=== PATIENT | female | born 1960 | race Caucasian/White ===

== ENCOUNTER 2017-11-24 15:52 | Outpatient (CLI) | payer OTHER | END 2017-11-24 15:53 | disposition home or self-care (01) | LOC: BICMAMMO 15:52 | PROVIDERS: ATTEND Specialist | DX: Z12.31 Encounter for screening mammogram for malignant neoplasm of breast (principal); Z80.3 Family history of malignant neoplasm of breast | CPT/HCPCS: 77063; 77067 ==

== ENCOUNTER 2017-12-04 02:59 | Observation (INO) | payer OTHER, SELFPAY ==
[2017-12-04 03:47] LABS: Bilirubin Negative (Negative); Blood, Urine Negative (Negative); Clarity CLEAR (Clear); Glucose, Urine (Dipstick) Negative (Negative); Leukocyte Negative (Negative); Nitrite Negative (Negative); Protein, Urine (Dipstick) Negative (Neg-Trace); Specific Gravity, Urine 1.012 (1.002-1.036)
[2017-12-04 03:48] LABS: ALT (SGPT) 35 U/L (8-55); AST (SGOT) 36 U/L (5-34); Albumin 4.2 g/dL (3.5-5.0); Alkaline Phosphatase 78 U/L (40-150); Anion Gap 14 mmol/L (10-20); BUN (Urea Nitrogen) 9 mg/dL (9.8-20.1); Bilirubin, Total 0.6 mg/dL (0.2-1.2); Calc. Creatinine Clearance 0 mL/min (70-130); Calcium 9.5 mg/dL (7.8-10.44); Carbon Dioxide 20 mmol/L (22-29); Chloride 93 mmol/L (98-107); Estimated GFR-MDRD 66; Globulin 3.4 g/dL (2.4-3.5); Glucose 123 mg/dL (70-105); Potassium 3.4 mmol/L (3.5-5.1); Protein, Total 7.6 g/dL (6.0-8.3); Sodium 124 mmol/L (136-145)
[2017-12-04 03:51] LABS: Hemoglobin 14.5 g/dL (12.0-16.0); Lymphocytes 40 % (21-51); MDiff Complete? YES; Mean Corpuscular HGB CONC 35.3 g/dL (32.0-36.0); Mean Corpuscular Hemoglobin 34.2 pg (27.0-31.0); Mean Platelet Volume 6.6 fL (7.4-10.4); Monocytes 5 % (0-10); Neutrophil 55 % (42-75); PLT Morphology Comment Appears Adequate; Platelet Count 288 thou/uL (130-400); RBC Distribution Width 11.7 % (11.5-14.5); Red Blood Cell (RBC) Count 4.23 mill/uL (4.20-5.40); White Blood Cell (WBC) Count 7.8 thou/uL (4.8-10.8)
[2017-12-04 07:44] VITALS: BMI 25.8
[2017-12-04] MEDS ORDERED: Acetaminophen 325 MG TAB PO PRN (09:08)
[2017-12-04] MEDS: Promethazine HCl 25 MG/ML VIAL SLOW IVP PRN ×2 (09:15→12:46)
[2017-12-04] MEDS: Sodium Chloride 0.9% 1,000 ML IV SCH ×2 (09:19→16:24)
--- NOTE | 2017-12-04 09:36 | RAD ---
UPRIGHT PORTABLE CHEST 1 VIEW: HISTORY: A 57-year-old female with a history of hyponatremia, smoking history, urinary frequency. FINDINGS: Monitor leads overlie the chest. There are some thoracolumbar scoliosis changes. Heart size is with in normal limits. No confluent pneumonia, overt edema, or pleural effusion. IMPRESSION: No significant acute intrathoracic disease. Thoracolumbar spine scoliosis. Atherosclerosis of the a guillermo with some ectasia. POS: [facility]
[2017-12-04 12:20] LABS: Anion Gap 13 mmol/L (10-20); BUN (Urea Nitrogen) 6 mg/dL (9.8-20.1); Calc. Creatinine Clearance 100 mL/min (70-130); Calcium 8.8 mg/dL (7.8-10.44); Carbon Dioxide 18 mmol/L (22-29); Chloride 100 mmol/L (98-107); Estimated GFR-MDRD 79; Glucose 121 mg/dL (70-105); Potassium 3.4 mmol/L (3.5-5.1); Sodium 128 mmol/L (136-145)
[2017-12-04] MEDS ORDERED: Temazepam 15 MG CAP PO PRN (15:48)
[2017-12-04] MEDS ORDERED: Promethazine HCl 25 MG/ML VIAL SLOW IVP PRN (15:49)
--- NOTE | 2017-12-04 17:26 | HP ---
DATE OF ADMISSION: 12/04/2017 CHIEF COMPLAINT: Hyponatremia. HISTORY OF PRESENT ILLNESS: The patient is a 57-year-old female who came in to see Dr. Rondon 3 days prior, was noted to have a bladder infection and placed on Bactrim. Since that time she has been experiencing extreme nausea and in the ER exhibited nausea and vomiting. Her sodium was found to be 124, so Dr. Rondon was contacted for admission. She denied any dysuria, blood in urine, fever or pain. PAST MEDICAL HISTORY: Significant for chronic back pain, insomnia, depression. She is also menopausal and has had osteoarthritis affecting her knees. PAST SURGICAL HISTORY: Has been right knee surgery. PAST PSYCHIATRIC HISTORY: Has been concerning anxiety. SOCIAL HISTORY: She is single. Drinks 2-3 glasses of wine 2-3 times a week. She uses marijuana regularly. She also uses tobacco and smokes one half pack per day. ALLERGIES: PENICILLINS, ZOFRAN and most recently SULFA DRUGS like BACTRIM. CURRENT MEDICATIONS: Include Bactrim DS b.i.d., which has been discontinued; and citalopram 40 mg once a day. REVIEW OF SYSTEMS: Constitutional: Negative for fever, chills, malaise, fatigue. HEENT: Denies any blurred vision, drainage from ears, nose or throat. No pain . Chest: Denies shortness of breath or coughing. Cardiovascular: Denies palpitations or chest pain. Gastrointestinal: Has nausea. Denies diarrhea. Has vomited several times. Genitourinary: Denies dysuria at this time. She still has frequency. No blood in urine or stool. Musculoskeletal: Denies swelling or edema in the extremities. Painful range of motion present. Skin: Without acute rashes or lesions. Neurologic: She complains of insomnia which has been chronic, but has no other trouble with mentation. No paresthesias or hypesthesias. PHYSICAL EXAMINATION: At the time of admission; VITAL SIGNS: Blood pressure 149/91, pulse 79, respirations 18, temperature 99. Pain scale at 7, which is chronically in her back. O2 sat 97% on room air. GENERAL: This is a well-developed, well-nourished female, alert, oriented, and cooperative. HEENT: Normocephalic and atraumatic. Pupils equal, round, and reactive to light. Extraocular muscles are intact. TMs, nares, pharynx are clear. NECK: Supple, trachea midline, no lymphadenopathy. CHEST: With generally diminished breath sounds throughout, no active wheezing or rales. HEART: Regular rate and rhythm, no murmur. BREAST: Deferred. ABDOMEN: Soft, nontender, without organomegaly. GENITOURINARY: Deferred. EXTREMITIES: Without clubbing, cyanosis, or edema. SKIN: No acute rashes or lesions. NEUROLOGIC: Cranial nerves are intact. Gait and cerebellar function untested. Sensory exam is intact. Mental status is nonfocal and intact. LABORATORY AND X-RAY FINDINGS: On admission, shows WBC 7.8, hemoglobin 14.5, hematocrit 41 with platelets at 288. Sodium initially was 124 on admission, at noon today it swells up to 128; potassium has remained the same at 3.4; CO2 is at 20 and 18; BUN is at 9 and 6; creatinine at 0.75; glucose at 121. Liver functions unremarkable. AST is slightly elevated at 36. Her chest x-ray shows no significant acute intrathoracic disease. There is some spinal scoliosis noted and atherosclerosis of the aorta was also noted. ASSESSMENT: 1. Hyponatremia. 2. Nausea, protracted. 3. Chronic back pain. 4. Chronic insomnia. PLAN: Plan will be to increase the strength of the promethazine used for nausea. Use quetiapine at 8 p.m. to induce sleep. Temazepam will be given at 9 -10 if necessary. We will slowly advance her diet in the morning and follow her electrolytes abnormalities. [facility]
[2017-12-04] MEDS: Promethazine HCl 25 MG in Sodium Chloride 0.9% 50 ML IVPB PRN (21:35)
[2017-12-05] MEDS: Sodium Chloride 0.9% 1,000 ML IV SCH ×2 (01:27→08:46)
[2017-12-05 05:39] LABS: Anion Gap 12 mmol/L (10-20); BUN (Urea Nitrogen) 6 mg/dL (9.8-20.1); Calc. Creatinine Clearance 111 mL/min (70-130); Calcium 8.3 mg/dL (7.8-10.44); Carbon Dioxide 17 mmol/L (22-29); Cardiac Risk 3.5 (Less than 4.5); Chloride 108 mmol/L (98-107); Cholesterol 173 mg/dl (< 200 Desired); Estimated GFR-MDRD 90; Glucose 97 mg/dL (70-105); HDL Cholesterol 50 mg/dL (>60 Neg Risk); LDL Cholesterol, Calculated 94 mg/dL; Potassium 3.8 mmol/L (3.5-5.1); Sodium 133 mmol/L (136-145); Triglycerides 146 mg/dL (Less than 150)
[2017-12-05] MEDS: Promethazine HCl 25 MG in Sodium Chloride 0.9% 50 ML IVPB PRN (08:36)
[2017-12-05] MEDS ORDERED: Promethazine HCl 25 MG/ML VIAL SLOW IVP PRN (08:51)
[2017-12-05 18:24] VITALS: BP 145/86; TEMP 98.1
== END 2017-12-05 18:33 | disposition home or self-care (01) ==
LOC: ERS 02:59 → T4-A 07:20
PROVIDERS: ADMIT Specialist; ATTEND Specialist
DX: E87.1 Hypo-osmolality and hyponatremia (principal); F12.20 Cannabis dependence, uncomplicated; F51.04 Psychophysiologic insomnia; Z88.0 Allergy status to penicillin; Z88.2 Allergy status to sulfonamides; Z79.899 Other long term (current) drug therapy
CPT/HCPCS: 36415; 71045; 80048; 80053; 80061; 81003; 83930; 84443; 85025; 87086; 90471; 90732; 93005; 96360; 96361; 96365; 96366; 96367; 96376; A4216; G0009; G0378; J2550; J3480; J7050

== ENCOUNTER 2018-03-31 14:32 | Inpatient (IN) | payer OTHER ==
[2018-03-31 15:32] LABS: #Lymphocytes 1.6 thou/uL (1.20-3.40); #Monocytes 0.5 thou/uL (0.11-0.59); #Neutrophils 8.6 thou/uL (1.40-6.50); %Basophils 0.4 % (0.0-1.0); %Eosinophils 0.4 % (0.0-10.0); %Lymphocytes 14.7 % (21.0-51.0); %Monocytes 4.8 % (0.0-10.0); %Neutrophils 79.8 % (42.0-75.0); Mean Corpuscular HGB CONC 32.3 g/dL (32.0-36.0); Mean Corpuscular Volume 99.3 fL (78.0-98.0); Mean Platelet Volume 7.9 fL (7.4-10.4); Platelet Count 293 thou/uL (130-400); RBC Distribution Width 17.7 % (11.5-14.5); Red Blood Cell (RBC) Count 4.68 mill/uL (4.20-5.40); White Blood Cell (WBC) Count 10.8 thou/uL (4.8-10.8)
[2018-03-31 15:48] LABS: Acetaminophen Less than 6.0 mcg/mL (10.0-30.0); Alcohol Less than 10 mg/dL (Less than 10)
[2018-03-31 15:49] LABS: Salicylate Less than 8.0 mg/dL (15.0-30.0)
[2018-03-31 15:50] LABS: Bilirubin Large (Negative); Blood, Urine Negative (Negative); Clarity CLOUDY (Clear); Glucose, Urine (Dipstick) Negative (Negative); Leukocyte Small (Negative); Nitrite Negative (Negative); Protein, Urine (Dipstick) Negative (Neg-Trace); pH, Urine 6.5 (5.0-9.0)
[2018-03-31 15:51] LABS: Squamous Epithelial 0-3 HPF (0-3)
[2018-03-31 15:59] LABS: Amphetamine Not Detected (NotDetected); Barbiturates Screen Not Detected (NotDetected); Benzodiazepine Screen Not Detected (NotDetected); Cocaine Metabolite Screen Not Detected (NotDetected); Medtox Control Line Valid? VALID (VALID); Medtox Reader # READER 1; Methadone Not Detected (NotDetected); Methamphetamine Not Detected (NotDetected); Opiate Screen Not Detected (NotDetected); Oxycodone Screen Not Detected (NotDetected); Phencyclidine (PCP) Not Detected (NotDetected); THC/Cannabinoid Screen Detected (NotDetected); Tricyclic Screen Not Detected (NotDetected)
[2018-03-31 16:01] LABS: Bacteria/HPF 1+ HPF (None Seen); Hyaline Casts/LPF 0-3 HYALINE CAST LPF (0-3 Hyaline); RBC/HPF 0-3 HPF (0-3)
[2018-03-31 16:02] LABS: Manual Microscopic Reviewed? No Path Casts Seen; Renal Epithelial None Seen HPF (0-3); Transitional Epithelial NONE SEEN HPF (0-3)
[2018-03-31 16:09] LABS: ALT (SGPT) 311 U/L (8-55); AST (SGOT) 654 U/L (5-34); Albumin 3.4 g/dL (3.5-5.0); Alkaline Phosphatase 320 U/L (40-150); Anion Gap 21 mmol/L (10-20); BUN (Urea Nitrogen) 10 mg/dL (9.8-20.1); Calc. Creatinine Clearance 0 mL/min (70-130); Calcium 9.4 mg/dL (7.8-10.44); Carbon Dioxide 19 mmol/L (22-29); Chloride 99 mmol/L (98-107); Estimated GFR-MDRD 52; Globulin 4.1 g/dL (2.4-3.5); Glucose 121 mg/dL (70-105); Lipase 16 U/L (8-78); Protein, Total 7.5 g/dL (6.0-8.3); Sodium 135 mmol/L (136-145)
[2018-03-31 16:16] LABS: Bilirubin, Total 23.7 mg/dL (0.2-1.2)
[2018-03-31 16:22] LABS: INR-International Normal Ratio 1.4; PTT 34.5 SEC (22.9-36.1); Prothrombin Time 17.5 SEC (12.0-14.7)
--- NOTE | 2018-03-31 16:27 | CT ---
CT ABDOMEN AND PELVIS WITH IV CONTRAST 03/31/18 HISTORY: Abdominal pain. Nausea. Jaundice. FINDINGS: Minimal left pleural fluid. Small amount of free fluid within the upper abdomen around the liver, jesenia ng each pericolic gutter, and within the dependent portion of the pelvis. There is circumferential wa ll thickening involving the right colon to the hepatic flexure and the terminal ileum. Appendix is no t inflamed. No free air. Nonspecific lymph nodes throughout the retroperitoneum. Calcification throug hout the arterial structures. IMPRESSION: Inflammation of the right colon and terminal ileum with small amount of free fluid throughout the abd omen and pelvis. Cause is not evident. Considerations would include inflammatory bowel disease, infec tious colitis, and ischemic colitis. Atherosclerosis. POS: [facility]
[2018-03-31] MEDS ORDERED: Metoclopramide HCl 10 MG/2 ML VIAL ONE (16:44)
[2018-03-31] MEDS ORDERED: Iopamidol 370 76% 100 ML VIAL ONE (16:54)
[2018-03-31 17:21] LABS: HBSAg Index 0.17 S/CO (0-0.99); Hep A IgM AB Non-Reactive (NonReactive); Hep A IgM S/CO 0.41 S/CO (0-0.79); Hep B Surf Ag Non-Reactive S/CO (NonReactive); Hep C IgG Ab Non-Reactive (NonReactive); Hep C Index 0.07 S/CO (0-0.79)
[2018-03-31 18:10] LABS: HBCM Index 0.96 S/CO (0-0.79); Hepatitis B Core IgM Abs Equivocal (NonReactive)
[2018-03-31] MEDS ORDERED: chlordiazePOXIDE HCl 25 MG CAP PO SCH ×2 (20:15→23:59)
[2018-03-31] MEDS ORDERED: Thiamine HCl 200 MG/2 ML VIAL IM SCH (20:15)
[2018-03-31] MEDS: Milk Of Magnesia 30 ML UDCUP PO SCH ×2 (20:54→20:58)
[2018-03-31] MEDS: Pantoprazole 40 MG VIAL IVP SCH (20:55)
[2018-03-31 23:15] VITALS: BMI 25.9
--- NOTE | 2018-04-01 01:47 | HP ---
CHIEF COMPLAINT ON ADMISSION: Jaundice. HISTORY OF PRESENT ILLNESS: The patient is a 57-year-old female who was in her usual state of health, drinking on a regular basis. Her last major consumption was Wednesday when she drank a whole bottle of red wine. On Wednesday, she just had coffee with Kahlua. She came to work on the day of admission, her co-worker says she looks absolutely yellow, she need to go to ER and see what is going on. The patient was aware that she might have had some abnormal labs recently and one of those looked that as well. She states the jaundice had probably been going on for about 2 weeks. Occasionally, she would have nausea and runny nose and she has been itching a lot recently as well. She states occasionally she has disorientation and headache, but has not had any pain. Denies any blood in her urine or stool. It was noted that her total bilirubin is 23.7, direct bilirubin is greater than 10. Her AST is up to 654, ALT 311, and alkaline phosphatase 320. At this point, Dr. Rondon was contacted for admission. PAST MEDICAL HISTORY: Significant for the aforementioned alcoholism, chronic back pain. She has also struggled with anxiety and depression. PAST SURGICAL HISTORY: On her right knee. PSYCHIATRIC HISTORY: As mentioned above involves her current anxiety and depression. SOCIAL HISTORY: She drinks socially 2 to 3 times per week, usually involving a whole bottle of wine at each occasion. She regularly uses marijuana. Her last use was on 03/28/2018. She also smokes probably approximately 1/2 pack per day. She has done so for many years. ALLERGIES: SHE IS ALLERGIC TO CHLORZOXAZONE, PENICILLINS, AND ZOFRAN. MEDICATIONS ON ADMISSION: Include; 1. Celexa 20 mg daily. 2. Trazodone 50 mg at bedtime. REVIEW OF SYSTEMS: At the time of admission, CONSTITUTIONAL: Denies fever, chills, or general malaise. HEENT: Eyes, significantly firm, bright yellow icterus. No drainage or pain. ENT; no sores, drainage, or pain. CHEST: Denies cough or dyspnea. CARDIOVASCULAR: Denies chest pain or palpitations. GI: Does report some nausea. No vomiting or diarrhea. : Denies dysuria or blood in urine or stool. MUSCULOSKELETAL: Denies any specific aches or pains other than chronic mid back pain that has been there for years. SKIN: Has acute jaundice and it is very itchy all over. NEUROLOGIC: She denies any paresthesias or hypesthesia. She does state she has had headaches and occasional episodes of confusion. HEMOLYTIC/LYMPH: No unusual bruising or swelling. PHYSICAL EXAMINATION: VITAL SIGNS: At the time of admission, vital signs; blood pressure 123/75, pulse 136, respirations 20. After hydration, her vital signs went to blood pressure of 92/74 with a pulse of 99, respirations 18, and temperature 98.6. Pain scale is 0 with 96% O2 saturation on room air. GENERAL: This is a well-developed, well-nourished, icteric/jaundiced female, alert and cooperative. HEENT: Normocephalic, atraumatic. Pupils are equal, round, reactive to light with bright yellow conjunctivae. TMs, nares, pharynx are clear. NECK: Supple. CHEST: Clear to auscultation. BREAST: Deferred. HEART: Regular rate and rhythm without murmur. ABDOMEN: With hepatomegaly. No specific areas of tenderness noted. No dysuria. EXTREMITIES: Without clubbing, cyanosis, or edema. Normal range of motion present. SKIN: Jaundiced. NEUROLOGIC: Cranial nerves are intact. Gait and cerebellar function intact. Sensory exam is intact. MENTAL STATUS: Significant for anxiety. LABORATORY DATA: Lab work thus far shows sodium 135, potassium 4.0, chloride 99 , CO2 of 19, BUN 10, creatinine 1.0 with a GFR of 52, glucose 121, and calcium 9.4. Total bilirubin 23.7, direct bilirubin greater than 10. AST 654, ALT 311, alkaline phosphatase 320, ammonia at 40. Total protein is 7.5, albumin 3.4, globulin 4.1 , lipase is 16. WBCs 10.8, hemoglobin 15, hematocrit 46.5 with enlarged MCV of 99.3, and platelets 293. PT 17.5, INR 1.4, and APTT is 34.5. Urinalysis, large bilirubin, small leukocyte esterase with wbc's 11 to 20. Toxicology shows urine drug screen positive for cannabis, otherwise unremarkable. Alcohol level less than 10. Hepatitis panel is positive or equivocal for hepatitis B core IgM antibody. The CT scan showed inflammatory reaction in the terminal ileum as well as the right colon. ASSESSMENT: 1. Alcoholic Hepatitis 2. Alcoholism. 3. Irritable bowel syndrome with inflammatory colitis. 4. Hyperbilirubinemia. 5. Depression. PLAN: IV fluids, prevention of DTs, GI consultation, and serial re-evaluation. Job ID: [id number]
[2018-04-01] MEDS: chlordiazePOXIDE HCl 25 MG CAP PO SCH ×4 (02:31→21:05)
[2018-04-01 07:02] LABS: #Basophils 0.1 thou/uL (0.0-0.2); #Eosinphils 0.2 thou/uL (0.0-0.7); #Lymphocytes 2.1 thou/uL (1.20-3.40); #Monocytes 0.6 thou/uL (0.11-0.59); #Neutrophils 3.7 thou/uL (1.40-6.50); %Basophils 1.1 % (0.0-1.0); %Eosinophils 2.5 % (0.0-10.0); %Lymphocytes 31.1 % (21.0-51.0); %Monocytes 9.7 % (0.0-10.0); %Neutrophils 55.7 % (42.0-75.0); Mean Corpuscular HGB CONC 32.4 g/dL (32.0-36.0); Mean Corpuscular Volume 98.6 fL (78.0-98.0); Mean Platelet Volume 7.3 fL (7.4-10.4); Platelet Count 205 thou/uL (130-400); RBC Distribution Width 17.3 % (11.5-14.5); Red Blood Cell (RBC) Count 3.75 mill/uL (4.20-5.40); White Blood Cell (WBC) Count 6.6 thou/uL (4.8-10.8)
[2018-04-01 07:23] LABS: Anion Gap 11 mmol/L (10-20); BUN (Urea Nitrogen) 9 mg/dL (9.8-20.1); Calc. Creatinine Clearance 89 mL/min (70-130); Carbon Dioxide 21 mmol/L (22-29); Chloride 107 mmol/L (98-107); Estimated GFR-MDRD 68; Gamma GT (GGT) 886 U/L (9-36); Glucose 105 mg/dL (70-105); Potassium 2.9 mmol/L (3.5-5.1); Sodium 136 mmol/L (136-145)
[2018-04-01] MEDS: Multivit, Therapeutic 1 TAB PO SCH (07:43)
[2018-04-01] MEDS: Citalopram 20 MG TAB PO SCH (07:43)
[2018-04-01] MEDS: Folic Acid 1 MG TAB PO SCH (07:43)
[2018-04-01] MEDS: Potassium Chloride 20 MEQ TAB PO SCH ×2 (08:34→21:05)
[2018-04-01] MEDS: Thiamine HCl 200 MG/2 ML VIAL IM SCH (08:34)
[2018-04-01 14:41] LABS: INR-International Normal Ratio 1.5; Prothrombin Time 17.8 SEC (12.0-14.7)
[2018-04-01 15:17] LABS: Ferritin 948.77 ng/mL (10-291)
[2018-04-01 15:32] LABS: HBSAB Concentration 0.89 mIU/mL; HBSAg Index 0.17 S/CO (0-0.99); Hep B Core Total Ab Non-Reactive (NonReactive); Hep B Core Total Index 0.15 S/CO (0-0.79); Hep B Surf AB Non-Reactive (NonReactive); Hep B Surf Ag Non-Reactive S/CO (NonReactive)
[2018-04-01 15:33] LABS: Iron 163 ug/dL (50-170); Iron Binding Capacity, Total 205 mcg/dL (265-497)
[2018-04-01 16:17] LABS: HBCM Index 0.82 S/CO (0-0.79); Hepatitis B Core IgM Abs Equivocal (NonReactive)
--- NOTE | 2018-04-01 19:33 | CON ---
DATE OF CONSULTATION: 04/01/2018 SUBJECTIVE: Ms. Patterson is a 57-year-old woman, who came to the emergency room due to jaundice. She first started noticing her skin turning yellow and urine getting darker a couple of weeks ago. She also had no nausea, vomiting, abdominal pain, diarrhea, or constipation associated with this. No blood in the stool. No significant pruritus. Her weight has been stable. She drinks a couple of bottles of wine per week and has for years. She drank vodka more heavily in the past in her 20s and 30s. She takes ibuprofen a couple of tablets daily for chronic back pain. She did take Celebrex for about three weeks starting a couple of weeks before the onset of the jaundice. She has taken no acetaminophen or Tylenol. She has had no sexual contacts in the last several months. No IV drug use. She does smoke marijuana a couple of times per week. PAST MEDICAL HISTORY: Chronic back pain, alcohol abuse, depression, and anxiety. PAST SURGICAL HISTORY: Knee surgery. FAMILY HISTORY: Negative for GI malignancy or liver disease. SOCIAL HISTORY: She drinks a couple of bottles of wine per week. She uses marijuana twice per week. She smokes half a pack per day. ALLERGIES: PENICILLIN, SULFA, CHLORZOXAZONE, ZOFRAN. MEDICATIONS: Prior to admission, Celexa 20 mg daily, trazodone 50 mg at bedtime, ibuprofen 2 tablets daily, and Celebrex for about 3 weeks prior to the onset of the jaundice. REVIEW OF SYSTEMS: Negative x10 systems reviewed, except as stated in the history of present illness. CURRENT INPATIENT MEDICATIONS: Include Librium, Celexa, folic acid, pantoprazole, trazodone, thiamine. PHYSICAL EXAMINATION: VITAL SIGNS: Temperature 97.8, pulse 96, blood pressure 115/77. GENERAL: She is jaundiced. She is in no acute distress. Alert and oriented x3. She has no asterixis on neurological exam. HEENT: Her eyes have scleral icterus. Oropharynx is clear without lesions. NECK: No cervical or supraclavicular lymphadenopathy. LUNGS: Clear to auscultation bilaterally. HEART: Regular rate and rhythm without murmur. ABDOMEN: Soft, nontender, nondistended. Bowel sounds are present. EXTREMITIES: No lower extremity edema. LABORATORY DATA: White blood cell count 6.6, hemoglobin 12.0, platelets 205. INR 1.4 yesterday. Bilirubin is 18 today, down from 23.7 yesterday. Labs from yesterday include AST of 654, ALT of 311, alkaline phosphatase 320, albumin 3.4, lipase 16. Hepatitis A IgM was negative. Hepatitis B surface antigen was negative. Hepatitis B core IgM was equivocal. Hepatitis C antibody was negative. IMPRESSION: 1. Abnormal liver function tests. She certainly has acute liver injury with AST greater than the ALT and markedly elevated bilirubin. Her INR was elevated yesterday. We will need to follow the trend of this. She could have acute alcoholic hepatitis. She reports drinking 2 bottles of wine per week, but may drink significantly more than that. We will evaluate further for other causes of liver disease. The hepatitis B core IgM was equivocal; however, no obvious risk factors for hepatitis B and the surface antigen was negative. I will recheck these and a DNA level, but I doubt she has acute hepatitis or chronic hepatitis B based on this finding. We will also check autoimmune markers and alpha-1 antitrypsin level, iron saturation. RECOMMENDATIONS: 1. Additional blood work evaluating for other causes of acute and chronic liver injury. 2. Ultrasound of the liver with Dopplers. 3. We will continue to try to assess was it acute liver injury versus a decompensation of possible chronic liver disease. There is no obvious evidence otherwise of chronic liver disease. Her platelets are normal, which does not suggest chronic portal hypertension, but this is not sensitive. Job ID: [id number]
[2018-04-01] MEDS: traZODone HCl 50 MG TAB PO SCH (21:05)
[2018-04-01] MEDS: Pantoprazole 40 MG VIAL IVP SCH (21:05)
[2018-04-02] MEDS: chlordiazePOXIDE HCl 25 MG CAP PO SCH ×5 (03:07→20:55)
[2018-04-02] MEDS: Sodium Chloride 0.9% 1,000 ML IV SCH (03:09)
[2018-04-02 06:40] LABS: #Basophils 0.1 thou/uL (0.0-0.2); #Eosinphils 0.1 thou/uL (0.0-0.7); #Lymphocytes 1.7 thou/uL (1.20-3.40); #Monocytes 0.6 thou/uL (0.11-0.59); #Neutrophils 3.4 thou/uL (1.40-6.50); %Basophils 1.9 % (0.0-1.0); %Eosinophils 2.4 % (0.0-10.0); %Lymphocytes 29.1 % (21.0-51.0); %Monocytes 9.6 % (0.0-10.0); %Neutrophils 56.9 % (42.0-75.0); Hemoglobin 12.9 g/dL (12.0-16.0); Mean Corpuscular HGB CONC 32.1 g/dL (32.0-36.0); Mean Corpuscular Hemoglobin 32.1 pg (27.0-31.0); Mean Corpuscular Volume 99.8 fL (78.0-98.0); Mean Platelet Volume 7.6 fL (7.4-10.4); Platelet Count 199 thou/uL (130-400); RBC Distribution Width 18.1 % (11.5-14.5); Red Blood Cell (RBC) Count 4.01 mill/uL (4.20-5.40)
[2018-04-02 06:46] LABS: INR-International Normal Ratio 1.6; Prothrombin Time 18.8 SEC (12.0-14.7)
[2018-04-02 06:58] LABS: ALT (SGPT) 214 U/L (8-55); AST (SGOT) 405 U/L (5-34); Albumin 2.6 g/dL (3.5-5.0); Alkaline Phosphatase 272 U/L (40-150); Anion Gap 10 mmol/L (10-20); BUN (Urea Nitrogen) 7 mg/dL (9.8-20.1); Bilirubin, Total 18.2 mg/dL (0.2-1.2); Calc. Creatinine Clearance 84 mL/min (70-130); Calcium 7.9 mg/dL (7.8-10.44); Carbon Dioxide 23 mmol/L (22-29); Chloride 109 mmol/L (98-107); Estimated GFR-MDRD 63; Globulin 3.2 g/dL (2.4-3.5); Glucose 104 mg/dL (70-105); Potassium 3.5 mmol/L (3.5-5.1); Protein, Total 5.8 g/dL (6.0-8.3); Sodium 138 mmol/L (136-145)
[2018-04-02] MEDS: Thiamine HCl 200 MG/2 ML VIAL IM SCH (08:42)
[2018-04-02] MEDS: Multivit, Therapeutic 1 TAB PO SCH (08:42)
[2018-04-02] MEDS: Folic Acid 1 MG TAB PO SCH (08:42)
[2018-04-02] MEDS: Citalopram 20 MG TAB PO SCH (08:42)
--- NOTE | 2018-04-02 10:18 | ULT ---
HEPATIC ULTRASOUND: Date: 04/02/18 HISTORY: Hepatitis TECHNIQUE: Real-time Cantu scale with color Doppler and spectral analysis of the liver was performed. FINDINGS: Visualized portions of the aorta and IVC are unremarkable. Normal directional flow to hepatic vessels which are patent. There is coarsened hepatic echotexture suggesting cirrhosis. Moderate ascites. Liver measures 11.7 cm in length. Gallbladder wall is thickened, measuring over 1.0 cm. The velocity of the portal vein measures approx imately 15.0 cm/second, lower limits of normal. Common bile duct measures 4.0 mm. Splenic artery and vein are patent. Spleen measures 9.9 cm in lengt h. IMPRESSION: 1. Slight decreased velocity of the main portal vein, which can be seen with portal hypertension. 2. Hepatic cirrhosis. 3. Gallbladder sludge. 4. Circumferential wall thickening of the gallbladder measuring over 1.0 cm. There is no distention of the gallbladder. This is likely sequelae of underlying hepatitis. POS: [facility]
[2018-04-02] MEDS ORDERED: prednisoLONE 15 MG/5 ML UDCUP PO SCH (12:00)
--- NOTE | 2018-04-02 12:04 | PRG ---
DATE OF SERVICE: 04/02/2018 SUBJECTIVE: Ms. Patterson has no acute complaints today. She has no abdominal pain, diarrhea, constipation, or blood in the stool. She is tolerating diet. OBJECTIVE: VITAL SIGNS: Temperature is 97.6, pulse is 96, blood pressure is 97/61. GENERAL: Jaundiced. No acute distress. Alert and oriented x3. EYES: Have scleral icterus. LUNGS: Clear to auscultation bilaterally. HEART: Regular rate and rhythm without murmur. ABDOMEN: Soft, nontender, nondistended. Bowel sounds are present. EXTREMITIES: No lower extremity edema. LABORATORY DATA: Creatinine 0.92, bilirubin 18.2, AST 405, ALT 214, alkaline phosphatase 272, albumin 2.6, alpha fetoprotein was 56. INR 1.6. Platelet count 199. Hepatitis serology is negative. Imaging; she had ultrasound this morning that showed coarse echogenicity of the liver could be suggestive of cirrhosis. Moderate ascites was noted. IMPRESSION: 1. Severe acute alcoholic hepatitis on top of underlying cirrhosis. She is decompensated now with an INR of 1.6 and bilirubin of 18. Her renal function remains normal. She has no encephalopathy. 2. Moderate ascites by ultrasound. I will talk to Radiology to see if there is an adequate amount of fluid to tap. 3. We are waiting additional lab work for other causes of liver disease. The AST was as high as 600 on presentation, which is atypical for alcoholic hepatitis. Usually, we do not see the AST significantly over 300 with this condition. We will need to continue to rule out evidence of autoimmune liver disease or other cause. Her iron saturation is elevated, so we will send a serology for hemochromatosis. RECOMMENDATIONS: 1. We will plan paracentesis if there is an adequate amount of fluid to tap to rule out SBP. 2. Her discriminant function is greater than 32 and we can give a trial of steroids. Prednisolone is preferred. 3. We are awaiting additional lab workup for other causes of the liver disease. We will send hemochromatosis DNA as well. Job ID: [id number]
[2018-04-02] MEDS: traMADol HCl 50 MG TAB PO PRN (20:54)
[2018-04-02] MEDS: traZODone HCl 50 MG TAB PO SCH (20:55)
[2018-04-03] MEDS: Lorazepam 2 MG/ML VIAL SLOW IVP PRN ×2 (00:46→22:55)
[2018-04-03 08:03] LABS: #Basophils 0.1 thou/uL (0.0-0.2); #Eosinphils 0.1 thou/uL (0.0-0.7); #Lymphocytes 1.7 thou/uL (1.20-3.40); #Monocytes 0.5 thou/uL (0.11-0.59); #Neutrophils 3.5 thou/uL (1.40-6.50); %Basophils 1.5 % (0.0-1.0); %Eosinophils 2.3 % (0.0-10.0); %Lymphocytes 28.6 % (21.0-51.0); %Monocytes 8.3 % (0.0-10.0); %Neutrophils 59.4 % (42.0-75.0); Hemoglobin 12.7 g/dL (12.0-16.0); Mean Corpuscular HGB CONC 32.2 g/dL (32.0-36.0); Mean Corpuscular Hemoglobin 32.4 pg (27.0-31.0); Mean Platelet Volume 7.5 fL (7.4-10.4); Platelet Count 195 thou/uL (130-400); RBC Distribution Width 18.4 % (11.5-14.5); Red Blood Cell (RBC) Count 3.92 mill/uL (4.20-5.40); White Blood Cell (WBC) Count 5.8 thou/uL (4.8-10.8)
[2018-04-03 08:09] LABS: INR-International Normal Ratio 1.7; Prothrombin Time 19.7 SEC (12.0-14.7)
[2018-04-03 08:24] LABS: ALT (SGPT) 201 U/L (8-55); AST (SGOT) 322 U/L (5-34); Albumin 2.6 g/dL (3.5-5.0); Alkaline Phosphatase 265 U/L (40-150); Anion Gap 13 mmol/L (10-20); BUN (Urea Nitrogen) 8 mg/dL (9.8-20.1); Bilirubin, Total 17.7 mg/dL (0.2-1.2); Calc. Creatinine Clearance 89 mL/min (70-130); Carbon Dioxide 19 mmol/L (22-29); Chloride 110 mmol/L (98-107); Estimated GFR-MDRD 68; Glucose 103 mg/dL (70-105); Potassium 3.5 mmol/L (3.5-5.1); Protein, Total 5.8 g/dL (6.0-8.3); Sodium 138 mmol/L (136-145)
[2018-04-03 08:30] LABS: Hemoglobin A1c 4.6 % (4.0-6.0)
[2018-04-03] MEDS ORDERED: prednisoLONE 15 MG/5 ML UDCUP PO SCH (09:00)
[2018-04-03 09:06] LABS: Bilirubin, Direct 12.8 mg/dL (0.1-0.3)
[2018-04-03] MEDS: traMADol HCl 50 MG TAB PO PRN ×3 (09:27→21:08)
[2018-04-03] MEDS: Citalopram 20 MG TAB PO SCH (09:28)
[2018-04-03] MEDS: chlordiazePOXIDE HCl 25 MG CAP PO SCH ×3 (09:28→21:08)
[2018-04-03] MEDS: Folic Acid 1 MG TAB PO SCH (09:28)
[2018-04-03] MEDS: Multivit, Therapeutic 1 TAB PO SCH (09:28)
[2018-04-03] MEDS: Thiamine HCl 200 MG/2 ML VIAL IM SCH (09:29)
--- NOTE | 2018-04-03 12:11 | PRG ---
DATE OF SERVICE: 04/03/2018 SUBJECTIVE: Ms. Patterson has no abdominal pain. She just feels fatigued in general. She is jaundiced. Her eyes have scleral icterus. OBJECTIVE: VITAL SIGNS: Temperature is 97.7, pulse 69, and blood pressure 111/72. GENERAL: She is in no acute distress. LUNGS: Clear to auscultation bilaterally. HEART: Regular rate and rhythm without murmur. ABDOMEN: Soft, nontender, and nondistended. Bowel sounds are present. EXTREMITIES: No lower extremity edema. LABORATORY DATA: White blood cell count 5.8, hemoglobin 12.7, platelets 195. INR 1.7. Bilirubin 17.7, AST 322, ALT 201, and alkaline phosphatase 265. IMPRESSION: 1. Severe acute alcoholic hepatitis on top of underlying cirrhosis. Decompensated with elevated INR and high bilirubin. She has no encephalopathy. 2. The ascites was just around the liver, not felt to be adequate for paracentesis. 3. Her transaminases and bilirubin are trending down somewhat today. RECOMMENDATIONS: 1. She was started on prednisolone 40 mg daily yesterday. 2. Continue to follow trend of her liver tests. Job ID: [id number]
[2018-04-03] MEDS: prednisoLONE Sod Phosphate 10 MG ODT TAB PO SCH (12:45)
[2018-04-03] MEDS: Sodium Chloride 0.9% 1,000 ML IV SCH (12:55)
[2018-04-03] MEDS: Fluticasone Propionate Nasal Spray 16 gm Bottle NASAL SCH ×2 (14:46→21:09)
[2018-04-03 15:09] LABS: Smooth Muscle Total ABS 9 Units (0-19)
[2018-04-03] MEDS: traZODone HCl 50 MG TAB PO SCH (21:08)
[2018-04-04] MEDS: traMADol HCl 50 MG TAB PO PRN (05:22)
[2018-04-04] MEDS: TURMERIC 500 MG PO SCH (06:22)
[2018-04-04 08:09] LABS: Anion Gap 10 mmol/L (10-20); BUN (Urea Nitrogen) 11 mg/dL (9.8-20.1); Calc. Creatinine Clearance 96 mL/min (70-130); Calcium 7.7 mg/dL (7.8-10.44); Carbon Dioxide 20 mmol/L (22-29); Chloride 109 mmol/L (98-107); Estimated GFR-MDRD 74; Glucose 116 mg/dL (70-105); Potassium 3.9 mmol/L (3.5-5.1); Sodium 135 mmol/L (136-145)
[2018-04-04] MEDS: chlordiazePOXIDE HCl 25 MG CAP PO SCH ×3 (08:14→20:48)
[2018-04-04] MEDS: Folic Acid 1 MG TAB PO SCH (08:14)
[2018-04-04] MEDS: Fluticasone Propionate Nasal Spray 16 gm Bottle NASAL SCH ×2 (08:14→20:49)
[2018-04-04] MEDS: Citalopram 20 MG TAB PO SCH (08:14)
[2018-04-04] MEDS: Multivit, Therapeutic 1 TAB PO SCH (08:14)
[2018-04-04 09:54] LABS: INR-International Normal Ratio 1.6; Prothrombin Time 18.7 SEC (12.0-14.7)
[2018-04-04 10:05] LABS: ALT (SGPT) 188 U/L (8-55); AST (SGOT) 220 U/L (5-34); Albumin 2.8 g/dL (3.5-5.0); Alkaline Phosphatase 261 U/L (40-150); Bilirubin, Total 17.7 mg/dL (0.2-1.2); Protein, Total 6.4 g/dL (6.0-8.3)
[2018-04-04 11:25] LABS: Bilirubin, Direct 12.8 mg/dL (0.1-0.3)
[2018-04-04] MEDS: prednisoLONE Sod Phosphate 10 MG ODT TAB PO SCH (11:34)
--- NOTE | 2018-04-04 14:38 | PRG ---
DATE OF SERVICE: 04/04/2018 SUBJECTIVE: She feels better today. She is asking when she can go home and get back to work. She has had some ongoing fatigue. No other acute complaints. OBJECTIVE: VITAL SIGNS: Temperature 98.0, pulse 89, blood pressure 131/84. GENERAL: She is jaundiced. No acute distress. LUNGS: Clear to auscultation bilaterally. HEART: Regular rate and rhythm without murmur. ABDOMEN: Soft, nontender, nondistended. Bowel sounds are present. EXTREMITIES: 1+ pitting lower extremity edema to trace edema. LABORATORY DATA: INR today is 1.6 down from 1.7 yesterday. Bilirubin 17, AST 220, ALT 188, alkaline phosphatase 261, albumin 2.8. Smooth muscle antibody is negative. Iron saturation is high with a ferritin of 948. Hemochromatosis gene has been requested. Alpha-1 antitrypsin level is pending. Mitochondrial antibody and SHANNAN are pending. IMPRESSION: Severe alcoholic hepatitis. She has been started on prednisolone. Her bilirubin appears to have plateaued and her other liver tests are decreasing. RECOMMENDATIONS: 1. Continue prednisolone 40 mg daily. 2. If her liver tests continue to improve over the next couple of days, she could potentially discharge home in a couple of days with close outpatient followup. Job ID: [id number]
[2018-04-04] MEDS: traZODone HCl 50 MG TAB PO SCH (20:48)
[2018-04-04] MEDS: Lorazepam 2 MG/ML VIAL SLOW IVP PRN (20:49)
[2018-04-04] MEDS: Sodium Chloride 0.9% 1,000 ML IV SCH (20:54)
[2018-04-05 07:51] LABS: INR-International Normal Ratio 1.5; Prothrombin Time 17.9 SEC (12.0-14.7)
[2018-04-05 08:03] LABS: ALT (SGPT) 142 U/L (8-55); AST (SGOT) 149 U/L (5-34); Albumin 2.4 g/dL (3.5-5.0); Alkaline Phosphatase 210 U/L (40-150); Bilirubin, Total 12.7 mg/dL (0.2-1.2); Protein, Total 5.4 g/dL (6.0-8.3)
[2018-04-05] MEDS: Fluticasone Propionate Nasal Spray 16 gm Bottle NASAL SCH ×2 (09:34→19:41)
[2018-04-05] MEDS: Citalopram 20 MG TAB PO SCH (09:34)
[2018-04-05] MEDS: Folic Acid 1 MG TAB PO SCH (09:34)
[2018-04-05] MEDS: Multivit, Therapeutic 1 TAB PO SCH (09:34)
[2018-04-05] MEDS: chlordiazePOXIDE HCl 25 MG CAP PO SCH (13:16)
[2018-04-05] MEDS: prednisoLONE Sod Phosphate 10 MG ODT TAB PO SCH (13:17)
[2018-04-05 14:21] LABS: Alpha-1-Antitrypsin 175 mg/dL (90-200)
[2018-04-05 19:58] VITALS: TEMP 98.7
--- NOTE | 2018-04-05 20:11 | PRG ---
DATE OF SERVICE: 04/05/2018 SUBJECTIVE: Ms. Patterson is feeling better. She still has some fatigue. She has had three formed bowel movements today. No blood in the stool. OBJECTIVE: VITAL SIGNS: Temperature 98.1, pulse 97, blood pressure 104/64. GENERAL: She is jaundiced. She is in no acute distress. Alert and oriented x3. NEUROLOGICAL: She has no asterixis on neurological exam. LUNGS: Clear to auscultation bilaterally. HEART: Regular rate and rhythm without murmur. ABDOMEN: Soft, nontender, nondistended. Bowel sounds are present. EXTREMITIES: 1+ pitting lower extremity edema. Of note, she has had increased lower extremity edema over the last couple of days. She feels like she is getting some increased pressure buildup in her abdomen as well. LABORATORY DATA: Bilirubin is down to 12.7, AST 149, ALT 142, alkaline phosphatase 210. INR is improved to 1.5. IMPRESSION: 1. Severe alcoholic hepatitis appears to be improving with prednisolone. 2. Increased fluid retention. She is having some increased lower extremity edema and she feels like she is possibly developing increased fluid in her belly. She may be developing some increase in ascites. At this point, we will continue a low-sodium diet. She will likely need to start diuretics at this point. She is not getting continuous fluids at this point. I will start furosemide 20 mg daily and spironolactone 50 mg daily. I would anticipate that she could possibly discharge home in a couple of days and then follow up in GI clinic a week after that. Recheck labs and follow her clinical status. RECOMMENDATIONS: 1. Prednisolone 40 mg daily for 1 month and then we will taper it off over 2-week period after that. 2. Start furosemide 20 mg daily and spironolactone 50 mg daily. 3. Low-salt diet. 4. Complete alcohol abstinence. 5. Await mitochondrial antibody and SHANNAN. Await hemochromatosis DNA. Await hepatitis B DNA. Job ID: [id number]
[2018-04-05] MEDS: traZODone HCl 50 MG TAB PO SCH (20:19)
[2018-04-05] MEDS: Lorazepam 2 MG/ML VIAL SLOW IVP PRN (20:19)
[2018-04-05] MEDS: traMADol HCl 50 MG TAB PO PRN (20:30)
[2018-04-06] MEDS: traMADol HCl 50 MG TAB PO PRN (03:02)
[2018-04-06] MEDS ORDERED: Spironolactone 25 MG TAB PO SCH (08:00)
[2018-04-06] MEDS ORDERED: Furosemide 20 MG TAB PO SCH (09:00)
[2018-04-06] MEDS: Citalopram 20 MG TAB PO SCH (09:08)
[2018-04-06] MEDS: Folic Acid 1 MG TAB PO SCH (09:08)
[2018-04-06] MEDS: Multivit, Therapeutic 1 TAB PO SCH (09:09)
[2018-04-06] MEDS: Fluticasone Propionate Nasal Spray 16 gm Bottle NASAL SCH (09:10)
[2018-04-06 10:31] LABS: ALT (SGPT) 137 U/L (8-55); AST (SGOT) 113 U/L (5-34); Albumin 2.6 g/dL (3.5-5.0); Alkaline Phosphatase 218 U/L (40-150); Bilirubin, Direct 8.2 mg/dL (0.1-0.3); Bilirubin, Total 11.4 mg/dL (0.2-1.2); Protein, Total 5.7 g/dL (6.0-8.3)
[2018-04-06] MEDS: chlordiazePOXIDE HCl 25 MG CAP PO SCH (12:20)
[2018-04-06] MEDS: prednisoLONE Sod Phosphate 10 MG ODT TAB PO SCH (12:22)
[2018-04-06 14:01] VITALS: BP 117/75
[2018-04-06 14:53] LABS: ANA Symphony (Qualitative) Negative (Negative); ANA Symphony (Quantitative) 0.1 Ratio (< 0.7 Negative); EliA Vaculitis New Method **** NEW METHOD ****; Mitochondrial Ab 0.7 U/mL (<4 Negative); dsDNA IgG Antibody Less than 0.5 IU/mL (<10 Negative)
== END 2018-04-06 14:44 | disposition home or self-care (01) | DRG 433 ==
LOC: ERS 14:32 → T4-A 17:12
PROVIDERS: ADMIT Specialist; ATTEND Specialist
DX: K70.11 Alcoholic hepatitis with ascites (principal); F10.239 Alcohol dependence with withdrawal, unspecified; M54.9 Dorsalgia, unspecified; G89.29 Other chronic pain; F41.9 Anxiety disorder, unspecified; F32.9 Major depressive disorder, single episode, unspecified; F17.210 Nicotine dependence, cigarettes, uncomplicated; K58.9 Irritable bowel syndrome, unspecified; K70.31 Alcoholic cirrhosis of liver with ascites; Z88.2 Allergy status to sulfonamides; Z88.0 Allergy status to penicillin
CPT/HCPCS: 36415; 74177; 76705; 80048; 80053; 80074; 80076; 80306; 80307; 81003; 81015; 81256; 82103; 82104; 82105; 82140; 82247; 82248; 82728; 82977; 83036; 83516; 83540; 83550; 83690; 85025; 85610; 86038; 86225; 86704; 86705; 86706; 87340; 93005; 96361; 96374; C9113; J2060; J2765; J3411

== ENCOUNTER 2018-05-20 10:14 | Emergency (ER) | payer OTHER ==
[2018-05-20 10:57] LABS: #Basophils 0.1 thou/uL (0.0-0.2); #Eosinphils 0.1 thou/uL (0.0-0.7); #Lymphocytes 2.8 thou/uL (1.20-3.40); #Monocytes 0.6 thou/uL (0.11-0.59); #Neutrophils 5.3 thou/uL (1.40-6.50); %Basophils 0.8 % (0.0-1.0); %Eosinophils 0.8 % (0.0-10.0); %Lymphocytes 31.3 % (21.0-51.0); %Monocytes 6.8 % (0.0-10.0); %Neutrophils 60.4 % (42.0-75.0); Hemoglobin 14.4 g/dL (12.0-16.0); Mean Corpuscular HGB CONC 33.1 g/dL (32.0-36.0); Mean Corpuscular Hemoglobin 33.7 pg (27.0-31.0); Platelet Count 183 thou/uL (130-400); RBC Distribution Width 13.7 % (11.5-14.5); Red Blood Cell (RBC) Count 4.27 mill/uL (4.20-5.40); White Blood Cell (WBC) Count 8.8 thou/uL (4.8-10.8)
[2018-05-20 11:23] LABS: ALT (SGPT) 27 U/L (8-55); AST (SGOT) 23 U/L (5-34); Albumin 3.5 g/dL (3.5-5.0); Alcohol Less than 10 mg/dL (Less than 10); Alkaline Phosphatase 112 U/L (40-150); Anion Gap 14 mmol/L (10-20); BUN (Urea Nitrogen) 11 mg/dL (9.8-20.1); Bilirubin, Total 2.2 mg/dL (0.2-1.2); Calc. Creatinine Clearance 0 mL/min (70-130); Calcium 9.6 mg/dL (7.8-10.44); Carbon Dioxide 22 mmol/L (22-29); Chloride 100 mmol/L (98-107); Estimated GFR-MDRD 81; Globulin 3.5 g/dL (2.4-3.5); Glucose 122 mg/dL (70-105); Lipase 104 U/L (8-78); Potassium 4.1 mmol/L (3.5-5.1); Sodium 132 mmol/L (136-145)
--- NOTE | 2018-05-20 11:40 | RAD ---
RADIOGRAPHIC ABDOMEN 1 VIEW: DATE: 05/20/2018. HISTORY: A 57-year-old female with generalized abdominal pain and constipation. FINDINGS: A moderate amount of colonic stool. Normal bowel gas pattern. No evidence of organomegaly. Severe facet DJD at lower lumbar levels, especially at L4-5. IMPRESSION: 1. Normal bowel gas pattern. 2. Lower lumbar spondylosis with severe facet osteoarthrosis. POS: [facility]
[2018-05-20 11:44] LABS: Bilirubin Negative (Negative); Blood, Urine Negative (Negative); Clarity CLOUDY (Clear); Glucose, Urine (Dipstick) Negative (Negative); Leukocyte Negative (Negative); Nitrite Negative (Negative); Protein, Urine (Dipstick) Negative (Neg-Trace); Specific Gravity, Urine 1.006 (1.002-1.036); Urobilinogen 0.2 mg/dL (0.2-1.0); pH, Urine 7.5 (5.0-9.0)
== END 2018-05-20 12:16 | disposition home or self-care (01) ==
LOC: ERS 10:14
DX: E80.6 Other disorders of bilirubin metabolism (principal); F17.210 Nicotine dependence, cigarettes, uncomplicated; F41.9 Anxiety disorder, unspecified; F32.9 Major depressive disorder, single episode, unspecified; K74.60 Unspecified cirrhosis of liver; Z79.899 Other long term (current) drug therapy
CPT/HCPCS: 36415; 74018; 80053; 80307; 81003; 82140; 83690; 85025

== ENCOUNTER 2023-05-21 11:02 | Outpatient (CLI) | payer OTHER | END 2023-05-21 11:03 | disposition home or self-care (01) | LOC: SCSRAD 11:02 | PROVIDERS: ATTEND Nurse Practitioner Family | DX: R06.02 Shortness of breath (principal); R91.8 Other nonspecific abnormal finding of lung field | CPT/HCPCS: 71046 ==

== ENCOUNTER 2023-08-27 14:58 | Outpatient (CLI) | payer OTHER | END 2023-08-27 14:59 | disposition home or self-care (01) | LOC: BICMAMMO 14:58 | PROVIDERS: ATTEND Family Medicine | DX: Z12.31 Encounter for screening mammogram for malignant neoplasm of breast (principal); Z80.3 Family history of malignant neoplasm of breast | CPT/HCPCS: 77063; 77067 ==

== ENCOUNTER 2024-01-31 14:49 | Outpatient (CLI) | payer OTHER | END 2024-01-31 14:50 | disposition home or self-care (01) | LOC: BICRAD 14:49 | PROVIDERS: ATTEND Internal Medicine | DX: J06.9 Acute upper respiratory infection, unspecified (principal); R09.89 Other specified symptoms and signs involving the circulatory and respiratory systems; R05.9 Cough, unspecified | CPT/HCPCS: 71046; 87635 ==